=== PATIENT | male | born 1945 | race Caucasian/White ===

== ENCOUNTER → 2020-04-21 12:48 | Outpatient (CLI) | payer MEDICARE, BC, SELFPAY ==
[2020-04-21 13:45] VITALS: PULSE 63; PULSE 65
--- NOTE | 2020-04-21 14:19 | CT_ITS ---
PROCEDURE: CT CHEST WO CON High-resolution CT CLINICAL INDICATION: dyspnea So[place], chest pain No prior COMPARISON: No exams were available for comparison TECHNIQUE: Axial images obtained with sagittal and coronal reformats. All CT scans at the facility use one or more dose reduction, viz: automated exposure control, ma/kV adjustment per patient size (including targeted exams where dose is matched to indication, i.e. head), or iterative reconstruction technique. Standard and high-resolution images are obtained on inspiration and expiration with high-resolution images also obtained in prone position. FINDINGS: No mediastinal or hilar mass or adenopathy. Coronary artery calcifications are present. There is minimal pericardial thickening anteriorly nonspecific. There is mild prominence of the ascending aorta at 4 cm. There is hyperinflation with attenuation of the peripheral pulmonary vessels consistent with COPD. Calcified granuloma is present in the right upper lobe. Linear densities are present in the lung bases consistent with atelectatic or fibrotic changes. The trachea is enlarged at 2.2 x 2.8 cm. Tracheal dimensions do not significantly change on inspiration and expiration. High-resolution images are obtained showing no evidence of septal thickening or pulmonary fibrotic change. No effusions or infiltrates are evident. No suspicious pulmonary nodules. No bronchiectasis. There are mild degenerative changes of the thoracic spine. Upper abdominal images show abdominal mesh deep to the abdominal wall IMPRESSION: 1. COPD with scattered fibrotic changes in the lung bases. 2. Tracheal megaly. This does not significantly change in inspiration and expiration 3. No convincing evidence of interstitial lung disease 4. Mild prominence of the ascending aorta at 4 cm with coronary artery calcifications noted Dictated by: Magdiel Condon MD 04/22/2020 08:12 Magdiel Condon MD in [facility] 04/22/2020 08:12
== END ==
PROVIDERS: PCP Emergency Medicine; Visit Provider Internal Medicine Pulmonary Disease
DX: R06.00 Dyspnea, unspecified (principal); J44.9 Chronic obstructive pulmonary disease, unspecified
CPT/HCPCS: 71250; 94060; 94640; 94726; 94729

== ENCOUNTER → 2021-04-06 11:10 | Outpatient (CLI) | payer MEDICARE, BC, SELFPAY ==
--- NOTE | 2021-04-06 11:18 | XR_ITS ---
PROCEDURE: XR CHEST 2V CLINICAL HISTORY: SOB COMPARISON: CT CT CHEST WO CON from 04/21/2020 FINDINGS: The cardiomediastinal silhouette and pulmonary vascularity are within normal limits. COPD changes. Old granulomatous disease. 4 mm nodular opacity overlies the left 6th rib and may be due to bone island present in the left 6 rib as seen on a previous CT scan. Bilateral nipple shadows noted.. Degenerative change thoracic spine. IMPRESSION: No acute findings. Dictated by: Magdiel Condon MD 04/06/2021 11:40 Magdiel Condon MD in [facility] 04/06/2021 11:40
== END ==
PROVIDERS: PCP Emergency Medicine; Visit Provider Internal Medicine Pulmonary Disease
DX: J44.9 Chronic obstructive pulmonary disease, unspecified (principal)
CPT/HCPCS: 71046